=== PATIENT | female | born 1960 | race Caucasian/White ===

== ENCOUNTER 2018-06-10 05:32 | Day surgery (SDC) | payer BC ==
--- NOTE | 2018-06-10 00:05 | HP ---
HISTORY OF PRESENT ILLNESS: This is a 57-year-old female who reports to our office for evaluation of neck and right arm pain. The patient states that she originally thought this pain from her shoulder and she saw an orthopedist, however, states that it is not shoulder. The patient states that she has been getting headaches and right side of the neck pain along with constant shoulder and upper arm pain. She also has numbness in her thumb and middle and 1st fingers. The patient has decreased balance and she now denies any pain in the left arm. The patient has seen Pain Management for injections as well as physical therapy, they helped some, but her most recent injections did not help at all. REVIEW OF SYSTEMS: A 10-point review of systems has been completed and is negative other than stated in the above HPI. PAST MEDICAL HISTORY: Arthritis and cervical neck pain. PAST SURGICAL HISTORY: Kidney stone removal in 2017. FAMILY HISTORY: Father is , diagnosed with diabetes. Mother is alive, diagnosed with heart disease and cancer. SOCIAL HISTORY: The patient is a former smoker. Denies alcohol or other illicit drug use. The patient is sexually active. MEDICATIONS: 1. Gabapentin. 2. Digestive enzymes. 3. Activella. 4. Simethicone Extra Strength. 5. Probiotic. 6. Urocit-K 15. ALLERGIES: NO KNOWN DRUG ALLERGIES. PHYSICAL EXAMINATION: HEENT. Head is normocephalic. Extraocular movements are intact. Pupils are intact. Hearing is intact. Moist mucous membranes. NECK: Normal, soft, and supple. No masses are noted. Range of motion is intact, painful range of motion. NEUROLOGIC: Awake, alert, and oriented x3. Memory, attention, and fund of knowledge, and language are normal. CRANIAL NERVES: Cranial nerves are grossly intact. EXTREMITIES: Upper extremities, 5/5 bilateral strength, deltoids, biceps, wrist extension, finger extension, 4/5 right triceps, finger extension. Reflexes are symmetrical. Decreased sensation in the thumb and middle fingers on the right hand compared to the left. RESPIRATORY: Normal work of breathing on room air. IMAGING DATA: Cervical MRI, C5-C6 herniated nucleus pulposus with central stenosis and C6-C7 herniated nucleus pulposus with right greater than left foraminal stenosis. ASSESSMENT AND PLAN: Degenerative disk disease, herniated nucleus pulposus, cervical region with cervical radiculopathy and spinal stenosis. Dr. Scott has offered ACDF. We have obtained informed consent. We have discussed the indications, risks, benefits, and alternatives, and expected results from surgery. The risks discussed included, but were not limited to, bleeding, infection, CSF leak, nerve damage, weakness, swallowing trouble, feeding tube placement, tracheal injury, esophageal injury, vocal cord injury, spinal cord injury, incontinence, paralysis, ventilator dependence, wheelchair dependence, stroke, loss of vision, cardiopulmonary complications of anesthesia or . Long-term complications discussed included, but were not limited to, hardware failure, degradation of surrounding disks. The patient states she understands the risks and is willing to proceed. Job ID: [id number]
[2018-06-10] MEDS ORDERED: Sodium Chloride 0.9% 10 ML ONE (06:17)
[2018-06-10] MEDS ORDERED: Thrombin 5000 UNITS/5 ML VIAL ONE (06:17)
[2018-06-10] MEDS ORDERED: Bupivacaine HCl 0.5%/Epinephrine 1:200,000/PF 30 ml Vial ONE (06:17)
[2018-06-10 06:44] LABS: #Lymphocytes 1.4 thou/uL (1.20-3.40); #Monocytes 0.5 thou/uL (0.11-0.59); #Neutrophils 3.2 thou/uL (1.40-6.50); %Basophils 0.6 % (0.0-1.0); %Eosinophils 0.8 % (0.0-10.0); %Lymphocytes 27.6 % (21.0-51.0); %Monocytes 8.8 % (0.0-10.0); %Neutrophils 62.2 % (42.0-75.0); Mean Corpuscular HGB CONC 32.1 g/dL (32.0-36.0); Mean Corpuscular Hemoglobin 30.4 pg (27.0-31.0); Mean Corpuscular Volume 94.6 fL (78.0-98.0); Mean Platelet Volume 8.7 fL (7.4-10.4); Platelet Count 201 thou/uL (130-400); RBC Distribution Width 11.6 % (11.5-14.5); Red Blood Cell (RBC) Count 4.28 mill/uL (4.20-5.40); White Blood Cell (WBC) Count 5.1 thou/uL (4.8-10.8)
[2018-06-10] MEDS ORDERED: Fentanyl 100 MCG/2 ML VIAL ONE ×3 (06:46→10:30)
[2018-06-10] MEDS ORDERED: Sodium Chloride 0.9% 100 ML ONE (06:49)
[2018-06-10] MEDS ORDERED: cefOXitin 2 GM VIAL ONE (06:49)
[2018-06-10 07:00] LABS: PTT 30.1 SEC (22.9-36.1); Prothrombin Time 13.2 SEC (12.0-14.7)
[2018-06-10] MEDS ORDERED: Promethazine HCl 25 MG/ML VIAL ONE (10:38)
[2018-06-10] MEDS ORDERED: Ketorolac Tromethamine 30 MG/ML VIAL ONE (10:47)
[2018-06-10] MEDS ORDERED: Morphine 4 MG/ML VIAL ONE (10:54)
[2018-06-10] MEDS ORDERED: HYDROmorphone 2 MG/ML VIAL ONE (11:09)
[2018-06-10] MEDS ORDERED: Acetaminophen/Codeine 30-300mg Tablet ONE (11:45)
[2018-06-10] MEDS ORDERED: tiZANidine HCl 4 MG TAB ONE (12:43)
[2018-06-10] MEDS ORDERED: Glycopyrrolate 0.2 MG/ML 5 ML SYRINGE ONE (13:35)
[2018-06-10] MEDS ORDERED: PROPOFOL 200 MG/20 ML VIAL ONE (13:35)
[2018-06-10] MEDS ORDERED: Dexamethasone 20 MG/5 ML VIAL ONE (13:35)
[2018-06-10] MEDS ORDERED: Lidocaine 1% PF 5 ML VIAL ONE (13:35)
[2018-06-10] MEDS ORDERED: PHENYLEPHRINE-NS 100 MCG/ML 10 ML SYRINGE ONE (13:35)
[2018-06-10] MEDS ORDERED: Ondansetron PF 4 MG/2 ML Vial ONE (13:35)
[2018-06-10] MEDS ORDERED: Rocuronium Bromide 10 MG/ML (10ML VIAL) ONE (13:35)
[2018-06-10] MEDS ORDERED: ePHEDrine 50 MG/ML VIAL ONE (13:35)
--- NOTE | 2018-06-10 13:47 | OP ---
DATE OF PROCEDURE: 06/10/2018 [employer]IOR [employer] DEVELOPER: Kierra Locke PA-C PREOPERATIVE INDICATION: Treat pain and prevent neurological deterioration. PREOPERATIVE DIAGNOSES: Right-sided C6 and C7 radiculopathies from intervertebral disk herniations at C5-C6 and C6-C7. POSTOPERATIVE DIAGNOSES: Right-sided C6 and C7 radiculopathies from intervertebral disk herniations at C5-C6 and C6-C7. PROCEDURES PERFORMED: Anterior cervical diskectomy, intervertebral arthrodesis, placement of intervertebral biomechanical device, anterior cervical plating C5-C6 and C6-C7, local morselized autograft, morselized allograft, and operating microscope. PREOPERATIVE MEDICATION: Ancef 2 g IV. DRAINS NUMBER: Zero. DRAIN TYPE: None. DESCRIPTION OF PROCEDURE: The patient was brought to the operating room. General endotracheal anesthesia was induced. The patient was positioned supine with her head supported by a gel-filled doughnut-shaped headrest and a lateral fluoro radiograph was used to plan our incision. The right side of the neck was sterilely prepped and draped. We opened with a 10 blade knife and controlled bleeding with bipolar cautery. We dissected sharply to the platysma. We cut this muscle in line with our incision and we continued our dissection medial to the sternocleidomastoid and lateral to the trachea and esophagus. We arrived at the prevertebral space. We placed a marker at the interspace of C5-C6 and took a lateral fluoro radiograph to confirm the levels upon which we were operating. We then elevated the longus colli muscles off the anterior surface of C5, C6, and C7, and placed a self-retaining retractor beneath them. We placed distraction pins at C5 and C7 and distracted across both of the intervening interspaces. We incised the interspaces with a 15 blade knife and removed disk contents using curettes and rongeurs. As we approached the posterior longitudinal ligament, we brought the operating microscope into the field. Under microscopic magnification and using microsurgical techniques, we removed the remainder of the intervertebral disk. We accessed the ventral epidural space with an angled microcurette and using Kerrison rongeurs, we removed posterior osteophytes and posterior longitudinal ligament across the entire interspace at C5-C6 and again at C6-C7. Until we had decompressed both neural foramina and the center of the canal. We turned our attention to arthrodesis. We removed cartilaginous cap from the endplates at the C5-C6 and C6-C7 with curettes. We measured the height of the interspace with a bone rasp to 7 mm at C6-C7 and 6 mm at C5-C6. The appropriately-sized PEEK intervertebral grafts were brought into the field. Osteophytes removed during our decompression were cleaned of soft tissue attachments, carefully morselized and added to demineralized bone matrix to form a fusion substrate. The substrate was packed into the PEEK grafts and those were advanced into the interspaces under radiographic guidance to the appropriate depth. We then removed our distraction pins and took the operating microscope out of the field. We brought a 28-mm anterior cervical plate into the field. We drilled state pilot holes through the plate into the vertebral bodies and then affixed the plate using 14 mm screws. We used fixed angle screws at C7 and variable angle screws at C6 and C5. We engaged the locking mechanism over each of the 6 screws. We irrigated copiously with bacitracin irrigation. AP and lateral fluoro radiographs confirmed adequate positioning of our instrumentation. We closed the wound in anatomical layers. We applied a sterile dressing. This was a clean case, no contamination. Job ID: [id number]
== END 2018-06-10 16:15 | disposition home or self-care (01) ==
LOC: SDC 05:32
PROVIDERS: ATTEND Neurological Surgery
DX: M50.122 Cervical disc disorder at C5-C6 level with radiculopathy (principal); M48.02 Spinal stenosis, cervical region; M19.90 Unspecified osteoarthritis, unspecified site; Z87.891 Personal history of nicotine dependence; Z79.899 Other long term (current) drug therapy
CPT/HCPCS: 36415; 76000; 85025; 85610; 85730; C1713; C1776; J0670; J0694; J1170; J1885; J2270; J2550; J3010; J3370; J3490; J7050